=== PATIENT | male | born 2000 | race Caucasian/White ===

== ENCOUNTER 2019-11-18 10:04 | Emergency (ER) | payer OTHER, SELFPAY ==
--- NOTE | 2019-11-18 10:17 | ED.GENADULT ---
HPI - General Adult General Chief complaint: Upper Respiratory Infection Stated complaint: Cough/congestion/SOB/Chest pain Time Seen by Provider: 11/18/19 10:41 Source: patient Mode of arrival: ambulatory Limitations: no limitations History of Present Illness HPI narrative: 19-year-old male patient presents to the [facility] with complaints of cold symptoms for the past 3 days. Patient states he has had some shortness of breath, coughing, drainage to the back of the throat, runny nose. Denies any fevers, body aches or chills. Patient states he did not get a flu shot this year. Patient states that he is an active smoker. Patient states he is taken 1 Tessalon Perles this morning for his symptoms since they started denies taking anything else. Related Data Home Medications Medication Instructions Recorded Confirmed albuterol sulfate 2 puff INHALATION QID PRN 11/18/19 11/18/19 Allergies Allergy/AdvReac Type Severity Reaction Status Date / Time Sulfa (Sulfonamide Allergy Unknown Verified 11/18/19 10:29 Antibiotics) Review of Systems Review of Systems: Narrative: CONSTITUTIONAL: Denies fever, chills, or sweats. EYES: Denies visual changes, redness, or discharge. ENT: Positive rhinorrhea, congestion, denies sore throat, or otalgia. CARDIOVASCULAR: Denies chest pain, palpitations, or edema. RESPIRATORY: Positive cough with dyspnea. GASTROINTESTINAL: Denies abdominal pain, nausea, vomiting, or diarrhea. GENITOURINARY: Denies dysuria or hematuria. SKIN: Denies rash or itching. MUSCULOSKELETAL: Denies back pain, joint pain, or myalgia. NEUROLOGIC: Denies headache, numbness, or weakness. PSYCHIATRIC: Denies anxiety or depression. PMFSH Comments At the time of my signature I agree with nursing past medical history, surgical, social, and family history. There is no relevant family history pertinent to the presenting complaint. Exam Narrative: Exam Narrative: GENERAL: Well-appearing, well-nourished, and in no acute distress. HEAD: Normocephalic, atraumatic. No tenderness noted to frontal and maxillary sinuses on palpation EYES: PERRLA and EOMI. ENT: Nares with erythema and edema noted bilaterally, patent, no rhinorrhea or epistaxis. Mucous membranes moist. Posterior pharynx with no erythema, tonsillar margin, exudates or lesions present. There is some slight postnasal drip noted. Bilateral TMs are clear with no erythema or foreign bodies in the canal. NECK: Supple. No lymphadenopathy CHEST: Patient does have Tory wheezing noted to bilateral upper and lower lobes on auscultation. No respiratory distress. Patient able talk in clear complete sentences. HEART: Regular rate and rhythm. No murmur heard. Normal peripheral pulses. ABDOMEN: Soft, nontender, nondistended, normal active bowel sounds. EXTREMITIES: Normal range of motion. No edema. SKIN: Warm, dry, no rash. NEURO: No focal deficits. Alert and oriented x3. Course Reevaluation(s) Reevaluation #1: Reevaluated patient after his DuoNeb was completed. Patient states he is feeling much better since receiving the DuoNeb. Patient's lung sounds do have a little bit of rhonchi to the bilateral upper lower lobes on expiration but are greatly improved and no wheezing noted at this time. Discussed with patient we will discharge him home with an albuterol inhaler and oral steroids for the wheezing and inflammation to the lungs as well as he needs to get a [id number] antihistamine and possibly a Flonase to help with some of the sinus drainage. Discussed with patient that if his symptoms continue to worsen then he would need to go to the ER for further evaluation and treatment. Patient verbalized understanding denies any other questions or concerns at this time. Date: 11/18/19 Time: 11:24 Vital Signs Vital signs: Vital Signs Temperature 36.3 C L 11/18/19 10:21 Pulse Rate 56 L 11/18/19 10:21 Respiratory Rate 14 11/18/19 10:21 Blood Pressure 129/68 11/18/19 10:21
[2019-11-18 10:21] VITALS: BP 129/68; PULSE 56; RESP 14; TEMP 36.3; O2SAT 98
[2019-11-18] MEDS: ALBUTEROL SULFATE NEB 2.5 MG/3 ML INH INHALATION (10:55)
[2019-11-18] MEDS: IPRATROPIUM BR 0.02% INH SOLN 0.5 MG/2.5 ML VIAL INHALATION (10:55)
[2019-11-18 11:15] VITALS: O2SAT 99
== END 2019-11-18 11:28 | disposition home or self-care (01) ==
PROVIDERS: Emergency Provider Nurse Practitioner Family
DX: J06.9 Acute upper respiratory infection, unspecified (principal); J45.909 Unspecified asthma, uncomplicated
CPT/HCPCS: 94640; 99213; G0463